=== PATIENT | male | born 1975 | race Caucasian/White ===

== ENCOUNTER → 2019-12-05 | Outpatient (CLI) | payer MEDICARE, MEDICAID ==
[~2019-12-05] MED LIST: HOLD METFORMIN - RECEIVED CONTRAST 20 ML VIAL IV SCH; IOHEXOL 350 MG/ML 100 ML (OMNIPAQUE 350) VIAL IV ONE; NS 100 ML (IVPB) BAG IV ONE
--- NOTE | 2019-12-05 14:40 | Diagnostic Imaging Report ---
PROCEDURE: CT abdomen and pelvis with and without contrast. TECHNIQUE: Precontrast acquisitions were acquired through the abdomen and pelvis. Multiple contiguous axial images were obtained through the abdomen and pelvis after the administration of intravenous contrast. Auto Exposure Controls were utilized during the CT exam to meet ALARA standards for radiation dose reduction. INDICATION: Left lower quadrant pain and left lower quadrant lump. FINDINGS: A BB marker was placed at the area of palpable abnormality in the left lower quadrant. Lung bases are clear. Liver does demonstrate diffuse low density, consistent with hepatic steatosis. No discrete liver mass is identified. Gallbladder is unremarkable. There is no biliary ductal dilatation. Pancreas and spleen are unremarkable. No adrenal mass is detected. Kidneys are unremarkable. Aorta is heavily calcified but nonaneurysmal. The small and large bowel loops are normal in caliber. There is no obstruction. There is no free fluid or fluid collection. At the area of palpable abnormality in the left lower quadrant, no underlying abnormality is seen. No discrete mass is identified. No fluid collection is identified. Bladder is unremarkable. Prostate gland is unremarkable. No abdominal or pelvic lymphadenopathy is seen. Bony structures are nonacute. IMPRESSION: 1. Hepatic steatosis. 2. Otherwise, unremarkable CT of the abdomen and pelvis. No acute feature is seen. Specifically, no abnormality in the left lower quadrant is identified at the area of palpable abnormality. Dictated by: Dictated on workstation # [id number]
--- NOTE | 2019-12-05 14:55 | Diagnostic Imaging Report ---
CLINICAL INDICATION: Patient with sore throat, hoarseness. Patient was elbowed in the throat. EXAM: Axial CT scan of the neck soft tissue performed with 80 mL of Omnipaque 350 IV contrast. Sagittal and coronal reformatted images are created. Auto Exposure Controls were utilized during the CT exam to meet ALARA standards for radiation dose reduction. COMPARISON: None. FINDINGS: The nasopharynx, oropharynx, hypopharynx, laryngeal soft tissue structures are symmetric and unremarkable. There is no neck soft tissue fat stranding. The thyroid gland and salivary glands are unremarkable. Visualized portions of the oral cavity, tongue, sublingual and submandibular regions are unremarkable. There is no lymphadenopathy. Mild emphysematous lung disease is seen. There are subtle groundglass centrilobular nodules seen involving the upper lung flores. There is bilateral apical pleural parenchymal thickening. There are small degenerative spurs involving the cervical spine. There is small mucus retention cyst in the right maxillary sinus. There is a 1.2 cm x 0.8 cm x 1.0 cm circumscribed nodular areas seen anteriorly adjacent to the left parotid gland which is in the subcutaneous region. The neck vascular structures show no significant abnormality. IMPRESSION: 1: There is a 1.2 cm circumscribed nodular area in the subcutaneous soft tissues seen anteriorly adjacent to the tail of the left parotid gland. Sebaceous cysts, epidermoid inclusion cysts, or lymph node may be considered. 2: Otherwise, the remainder of the neck soft tissue structures are unremarkable. The oropharyngeal and laryngeal soft tissue structures are unremarkable. 3: Mild emphysematous lung disease. There are subtle groundglass centrilobular nodules involving both lung apices which may be from mild infection or inflammatory process. Dictated by: Dictated on workstation # [id number]
== END ==
LOC: RAD 13:39
PROVIDERS: ATTEND Nurse Practitioner Family
DX: R10.32 Left lower quadrant pain (principal); R07.0 Pain in throat; K76.0 Fatty (change of) liver, not elsewhere classified; J43.9 Emphysema, unspecified; R91.8 Other nonspecific abnormal finding of lung field; R22.1 Localized swelling, mass and lump, neck
CPT/HCPCS: 70491; 74178

== ENCOUNTER → 2020-01-15 | Outpatient (CLI) | payer MEDICARE, MEDICAID ==
[~2020-01-15] MED LIST changes: +CATHETER FLUSH 10 ML SYR IV PRN
--- NOTE | 2020-01-15 14:42 | Diagnostic Imaging Report ---
PROCEDURE: CT neck soft tissue without contrast. TECHNIQUE: Multiple contiguous axial images were obtained through the neck without the use of intravenous contrast. Auto Exposure Controls were utilized during the CT exam to meet ALARA standards for radiation dose reduction. INDICATION: Head/neck injury July 2019, now with difficulty swallowing. COMPARISON: Neck CT performed on 12/05/2019. FINDINGS: The nasopharynx, oropharynx, and hypopharynx are unremarkable. The tracheal cartilage is normal. The structures of the larynx show no deformity. The hyoid bone is intact. The prevertebral and retropharyngeal spaces are unremarkable. No opaque foreign body. No airway embarrassment. The free edge of the epiglottis and aryepiglottic folds are unremarkable. The laryngeal trachea is patent. No findings of an acute or chronic laryngeal fracture. The central skull base and bony cervical spine are nonacute. A small midline disc protrusion at C3-C4 results in at least mild canal stenosis. No suspicious mass or fluid collection. A subcutaneous nodule superficial to the left cooler operator space and caudal tail of the parotid is unchanged, likely a sebaceous cyst, measuring 1.2 cm. IMPRESSION: 1. No findings of acute or chronic tracheal or laryngeal injury. No airway embarrassment. Stable presumed benign subcutaneous left neck nodule. No acute appearing abnormality. 2. In light of the stable unremarkable CT neck and persistent clinical complaints and if not already performed, one might consider a fluoroscopic video swallowing motion series versus esophagram depending upon the level of complaint. Dictated by: Dictated on workstation # [id number]
== END ==
LOC: RAD 13:44
PROVIDERS: ATTEND Otolaryngology Otolaryngology/Facial Plastic Surgery
DX: J31.2 Chronic pharyngitis (principal); E04.1 Nontoxic single thyroid nodule
CPT/HCPCS: 70490